=== PATIENT | male | born 1980 | race Caucasian/White ===

== ENCOUNTER → 2017-09-15 | Outpatient (CLI) | payer BC ==
--- NOTE | 2017-09-19 13:48 | Diagnostic Imaging Report ---
APPROVED REPORT CPT Code: 86538 Present Symptoms Comments: LEFT LEG PAIN AND SWELLING. LEFT LEG: Venous imaging reveals a patent deep venous system. There is no evidence of thrombus within the femoral, popliteal or tibial segments. The greater saphenous vein is also within normal limits. Doppler indicates normal spontaneous flow within these segments.
== END | disposition home or self-care (01) ==
LOC: ULS 15:30
DX: R60.0 Localized edema (principal)
CPT/HCPCS: 93971